=== PATIENT | male | born 1950 | race Caucasian/White ===

== ENCOUNTER 2018-08-28 09:36 | Emergency (ER) | payer MEDICARE ==
[~2018-08-28] VITALS: Ht 185.4 cm; Wt 98.0 kg
--- NOTE | 2018-08-28 10:04 | NUR ---
Pt presents to ER w/ multiple c/o: Rash on face & intermittent MUJICA since dental extractions several mo. ago. Feels he has "lumps in throat" when swallowing, flare up of psoriasis BLE, dependent edema BLE. NAD at this time. Pt in gown w/ blanket, await ER MD zaldivar. for orders.
--- NOTE | 2018-08-28 10:20 | NUR ---
PT PRESENTS WITH MULTIPLE COMPLAINTS. PT SAYS HE HAS TOOTH PAIN, NECK TENDERNESS, POOR BALANCE, DRY COUGH, DIFFICULTY SWALLOWING, SHORT OF BREATH, PSORIASIS, AND HIS BM'S COME OUT "REALLY SKINNY".
--- NOTE | 2018-08-28 11:00 | NUR ---
Urine collected & sent, EKG & x-rays complete. Labs being drawn. Pt has no needs at this time, call light within reach, aware of POC.
[2018-08-28 11:15] LABS: BASOPHILS # (AUTO) 0.05 x10^3/uL (0-0.1); BASOPHILS % (AUTO) 1 % (0-1); EOSINOPHILS # (AUTO) 0.09 x10^3/uL (0-0.4); EOSINOPHILS % (AUTO) 1 % (1-7); LYMPHOCYTES # (AUTO) 1.48 x10^3/uL (1-3.4); LYMPHOCYTES % (AUTO) 23 % (22-44); MD NO; MEAN CORPUSCULAR HEMOGLOBIN 29.4 pg (27.5-34.5); MEAN CORPUSCULAR HGB CONC 32.4 g/dL (33.2-36.2); MEAN CORPUSCULAR VOLUME 90.6 fL (81-97); MEAN PLATELET VOLUME 8.4 fL (7.4-10.4); MONOCYTES % (AUTO) 9 % (2-9); NEUTROPHILS # (AUTO) 4.33 x10^3/uL (1.8-6.8); NEUTROPHILS % (AUTO) 66 % (42-75); PLATELET COUNT 171 x10^3/uL (130-400); RED BLOOD COUNT 3.99 x10^6/uL (4.38-5.82); RED CELL DISTRIBUTION WIDTH 19.9 % (9.4-14.8)
[2018-08-28 11:16] LABS: CULTURE INDICATED? YES; MICROSCOPIC INDICATED
[2018-08-28 11:27] LABS: ALBUMIN 3.3 g/dL (3.4-5.0); ANION GAP 6 mmol/L (5-15); CALCIUM 8.6 mg/dL (8.5-10.1); CHLORIDE 105 mmol/L (98-107)
[2018-08-28 11:32] LABS: ALANINE AMINOTRANSFERASE 88 U/L (12-78); ALKALINE PHOSPHATASE 59 U/L (45-117); BILIRUBIN,TOTAL 1.2 mg/dL (0.2-1.0); CREATININE 0.83 mg/dL (0.7-1.3); TOTAL PROTEIN 7.2 g/dL (6.4-8.2); TROPONIN I < 0.015 ng/mL (0.000-0.045)
[2018-08-28] MEDS ORDERED: LORazepam 1MG TABLET PO ONE (12:00)
[2018-08-28] MEDS ORDERED: SODIUM CHLORIDE FLUSH 10ML SYR IVF ONE (12:00)
--- NOTE | 2018-08-28 12:30 | NUR ---
CT WAITING FOR IV ACCESS
--- NOTE | 2018-08-28 12:30 | NUR ---
Patient is resting comfortably in bed. Vital Signs within normal limits. Pt had some applesause and tolerated intake.
--- NOTE | 2018-08-28 12:43 | NUR ---
PT OUT OF ROOM FOR IMAGING. PT HAS NO OBJECTIVE SIGNS OF PAIN OR DISTRESS. VSS.
[2018-08-28] MEDS ORDERED: OMNIPAQUE 350 MG/ML, 100ML BOTTLE ONE (12:57)
--- NOTE | 2018-08-28 13:29 | NUR ---
CT read back. Await ER MD recheck. Pt resting comfortably at this time.
[2018-08-28 14:20] VITALS: BP 153/81
== END 2018-08-28 14:24 | disposition home or self-care (01) ==
LOC: ED 12:20
DX: K29.01 Acute gastritis with bleeding (principal)
CPT/HCPCS: 36415; 70360; 71045; 74177; 80053; 81001; 84484; 85025; 87086; 93005; 99284; Q9967

== ENCOUNTER 2018-10-18 21:15 | Emergency (ER) | payer MEDICARE ==
[~2018-10-18] VITALS: Ht 185.4 cm; Wt 97.7 kg
[2018-10-18 21:26] VITALS: BP 102/54
== END 2018-10-18 23:05 | disposition home or self-care (01) ==
LOC: ED 22:59
DX: G89.11 Acute pain due to trauma (principal); R51 Headache; Z59.0 Homelessness; F10.10 Alcohol abuse, uncomplicated; W19.XXXA Unspecified fall, initial encounter; Y93.89 Activity, other specified; Y92.410 Unspecified street and highway as the place of occurrence of the external cause; Y99.8 Other external cause status
CPT/HCPCS: 70450; 72125; 90471; 90715; 99284